=== PATIENT | male | born 1955 | race Caucasian/White ===

== ENCOUNTER 2017-02-27 10:00 | Inpatient (IN) | payer BC ==
[~2017-02-27] VITALS: Ht 175.3 cm; Wt 99.8 kg
[2017-04-23 15:42] VITALS: BMI 31.3
[2017-04-23] MEDS ORDERED: LORA1TAB PO (15:45)
[2017-04-24] VITALS (11 sets, daily range): BP systolic 117–150; BP diastolic 67–89; PULSE 55–77; RESP 16–29; Ht 175.3 cm; Wt 99.8 kg
[2017-04-24] MEDS ORDERED: CEFAZOLIN 2 GM/50 ML (PMX) 50 ML IVPB SCH (06:30)
[2017-04-24] MEDS ORDERED: TRANEXAMIC ACID 1,000 MG in D5W 100 ML AT CLOSURE X1 IVPB ONE (06:30)
[2017-04-24] MEDS ORDERED: TRANEXAMIC ACID 1,000 MG in D5W 100 ML AT INCISION X1 IVPB ONE (06:30)
--- NOTE | 2017-04-24 07:42 | HPN ---
Date/Time of Note Date/Time of Note DATE: 04/24/17 TIME: 07:42 Interval H&P Admission Note Pt. seen H&P reviewed: No system changes LIBRA ALVES PA-C Apr 24, 2017 07:42
[2017-04-24] MEDS ORDERED: DIVA500T7 PO ×2 (08:32)
[2017-04-24] MEDS ORDERED: ESCI10TA PO (08:33)
[2017-04-24] MEDS ORDERED: ATOR20TA38 PO (08:36)
[2017-04-24] MEDS ORDERED: HYDR-902 PO (08:37)
--- NOTE | 2017-04-24 09:40 | RADRPT ---
PROCEDURE: XR Chest. CLINICAL INDICATION: Preoperative. TECHNIQUE: Single frontal view. COMPARISON: None. FINDINGS: The lungs are clear. The heart size is normal. There is no pleural effusion. There is no pneumothorax. IMPRESSION: 1. Normal chest radiograph. RPTAT: QQ .Flaquito Modi MD, Date Time Electronically viewed and signed by .Flaquito Modi MD, on 04/24/2017 09:40 .R/
[2017-04-24 09:59] LABS: BASOPHILS % 0.7 % (0.0-2.0); EOSINOPHILS # 0.1 10^3/ul (0.0-0.5); EOSINOPHILS % 1.1 % (0.0-7.0); HEMATOCRIT 41.5 % (42.0-52.0); LYMPHOCYTES % 36.8 % (15.0-51.0); MEAN CORPUSCULAR HGB CONC 36.1 g/dl (32.0-37.0); MEAN CORPUSCULAR VOLUME 88.5 fl (82.0-101.0); MEAN PLATELET VOLUME 10.6 fl (7.4-10.4); MONOCYTE # 0.5 10^3/ul (0.3-0.9); MONOCYTES % 9.6 % (0.0-11.0); NEUTROPHIL # 2.8 10^3/ul (1.6-7.5); NEUTROPHILS % 51.6 % (39.0-77.0); PLATELET COUNT 175 10^3/UL (140-415); RED BLOOD COUNT 4.69 10^6/ul (4.70-6.10); RED CELL DISTRIBUTION WIDTH 12.2 % (11.5-14.5); WHITE BLOOD COUNT 5.4 10^3/ul (4.8-10.8)
[2017-04-24 10:17] LABS: ALBUMIN 4.4 g/dl (3.3-4.9); ALBUMIN/GLOBULIN RATIO 1.37; BILIRUBIN,INDIRECT 0.7 mg/dl (0-1.1); BILIRUBIN,TOTAL 0.7 mg/dl (0.2-1.3); TOTAL PROTEIN 7.6 g/dl (6.1-8.1)
[2017-04-24 10:18] LABS: CALCIUM 9.6 mg/dl (8.4-10.2); CREATININE 0.77 mg/dl (0.61-1.24)
[2017-04-24 10:29] LABS: INR 1.11; PROTIME 14.5 Sec (11.9-14.9); PT RATIO 1.1
[2017-04-24 10:30] LABS: PARTIAL THROMBOPLASTIN TIME 33.4 Sec (25.0-35.0)
[2017-04-24] MEDS ORDERED: METOCLOPRAMIDE 10 MG INJ ONE (12:24)
[2017-04-24] MEDS ORDERED: ROPIVACAINE 0.2% 20 ML VIAL ONE (12:24)
[2017-04-24] MEDS ORDERED: MIDAZOLAM 1 MG/ML 2 ML INJ ONE (12:24)
[2017-04-24] MEDS ORDERED: DEXAMETHASONE 4 MG/ML 1 ML INJ ONE (12:24)
[2017-04-24] MEDS ORDERED: FENTAnyl 50 MCG/ML VIAL ONE (12:25)
[2017-04-24] MEDS ORDERED: EPHEDrine SULFATE 50 MG/5 ML SYG ONE (13:02)
[2017-04-24] MEDS ORDERED: PROPOFOL 0 ML ONE (14:57)
[2017-04-24] MEDS ORDERED: PROPOFOL 20 ML ONE ×2 (14:57→16:01)
--- NOTE | 2017-04-24 15:59 | RADRPT ---
PROCEDURE: Right knee radiograph. CLINICAL INDICATION: Right knee pain. Intraoperative. TECHNIQUE: Single frontal intraoperative image of the right knee. COMPARISON: None. FINDINGS: There are components of a total right knee arthroplasty. IMPRESSION: 1. Satisfactory intraoperative imaging of the right knee. RPTAT: QQ .Flaquito Modi MD, Date Time Electronically viewed and signed by .Flaquito Modi MD, on 04/24/2017 15:59 .R/
[2017-04-24] MEDS ORDERED: PROPOFOL 100 ML ONE (16:01)
--- NOTE | 2017-04-24 16:10 | PDOCDIS ---
Discharge Instructions DIAGNOSIS Discharge Diagnosis Status post right total knee replacement CONDITION Patient Condition: Good HOME CARE INSTRUCTIONS: Diet Instructions: Regular ACTIVITY: Activity Restrictions: Slowly Increase Activity Rest between Activity Avoid heavy lifting No Sexual Activity Do not Drive Do not operate Machinery Do not operate Power Tool Avoid Heavy Housework Keep Limb Elevated (2-3 pillows underneath the foot and ankle) Weight Bearing (Weight-bear as tolerated using front wheeled walker.) Bathing Restrictions: Shower (Keep Mepilex dressing on until postoperative appointment. Keep the area clean and dry.) FOLLOW UP/APPOINTMENTS Follow-up Plan Follow-up at your postoperative appointment provided to you at your preoperative visit. LIBRA ALVES PA-C Apr 24, 2017 16:10
[2017-04-24] MEDS ORDERED: ONDANSETRON 4 MG INJ IV PRN ×2 (16:30→17:00)
[2017-04-24] MEDS ORDERED: HYDROCODONE/APAP (10/325) TAB PO PRN (16:30)
[2017-04-24] MEDS ORDERED: HYDROCODONE/APAP (5/325) TAB PO PRN ×2 (16:30)
[2017-04-24] MEDS ORDERED: morphine 10 MG INJ IV PRN (16:30)
[2017-04-24] MEDS ORDERED: DIPHENHYDRAMINE 50 MG INJ IV PRN (17:00)
[2017-04-24] MEDS ORDERED: HYDROmorphONE (0.2 MG/ML) 10ML SYG IV PRN ×3 (17:00)
[2017-04-24] MEDS ORDERED: MEPERIDINE 25 MG INJ IV PRN (17:00)
--- NOTE | 2017-04-24 17:16 | SIPON ---
Date/Time of Note Date/Time of Note DATE: 04/24/17 TIME: 17:15 Operative Report Preoperative Diagnosis Right knee osteoarthritis Postoperative Diagnosis Same Operation/Procedure Performed Right total knee replacement Surgeon see signature line web production assistant Dr. Newton Brady Second assist: LIBRA ALVES PA-C Anesthesia: spinal Estimated blood loss: 150 - 200 ml's Transfusion Required none Specimen Bone Grafts/Implants depuy 7 femur, 6 tibia, 6 polyethylene, 38 patella Complications none MARISELA RIZO Apr 24, 2017 17:16
--- NOTE | 2017-04-24 17:20 | OPR ---
Date/Time of Note Date/Time of Note DATE: 04/24/17 TIME: 17:16 Operative Report Procedure Date: Apr 24, 2017 Preoperative Diagnosis Right knee osteoarthritis Postoperative Diagnosis Same Operation/Procedure Performed Right total knee replacement Surgeon see signature line Director Employee Communications Dr. Newton Brady Second Director Employee Communications: LIBRA ALVES PA-C Anesthesia Type: spinal Estimated Blood Loss: 150 - 200 ml's Transfusion none Specimen Bone Grafts/Implants Depuy size 7 femur, size 6 tibia, 6 cm polyethylene, 38 patella Tubes/Drains None Complications none Pt Condition Post Procedure: stable Disposition: PACU Indications 61-year-old male with advanced osteoarthritis of the right knee Procedure Description Patient was placed supine on the operating room table. The right knee was prepped and draped in usual manner. Examination of the knee showed a valgus deformity and flexion deformity. After prepping and draping of the right knee, an anterior incision was made. A mid vastus approach was made and the patella displaced laterally. Using intramedullary alignment, the distal femur was cut in 4 of valgus. The femur was measured to be a size 7 from the [employer] knee system. The 7 cutting block was placed an anterior posterior and chamfer cuts made. The notch was cut in the distal femur to accommodate the posterior stabilized femoral component. The PCL was sacrificed. Remnants of the menisci were removed. Loose bodies and osteophytes were removed. The tibia was cut using external alignment and the patella cut using a freehand technique. Trial components were inserted including a 7 femur 6 tibia and 38 patella. 6 mm of polyethylene resulted in a stable knee from 0-120 with good balance and tracking. X-rays were obtained to confirm alignment. Once satisfactory alignment was confirmed, trial components were removed. The knee was thoroughly irrigated and dried. The knee was injected with Marcaine and Toradol. Final components were then cemented in place. The knee was stable with good balance and tracking. The knee was closed in layers using #1 Vicryl for arthrotomy and fascia, 2-0 Vicryl for subcu tissue and 3-0 Monocryl for the skin. Patient was transferred to the recovery room in stable condition MARISELA RIZO Apr 24, 2017 17:20
== END 2017-04-24 20:20 | disposition home or self-care (01) | DRG 470 ==
LOC: REC 04-24 07:38
PROVIDERS: ADMIT Orthopaedic Surgery; ATTEND Orthopaedic Surgery
PROC: 0SRC0J9 Replacement of Right Knee Joint with Synthetic Substitute, Cemented, Open Approach (ICD-10-PCS; principal; 2017-04-24 12:00)
DX: M17.11 Unilateral primary osteoarthritis, right knee (principal); D69.6 Thrombocytopenia, unspecified; E78.5 Hyperlipidemia, unspecified; E55.9 Vitamin D deficiency, unspecified
CPT/HCPCS: 71010; 73560; 80053; 85025; 85610; 85730; 86850; 86900; 86901; 87081; 88304; C1713; C1776; J1100; J2250; J2765; J2795; J3010